=== PATIENT | male | born 1985 | race Caucasian/White ===

== ENCOUNTER 2021-03-17 04:13 | Emergency (ER) | payer SELFPAY ==
[~2021-03-17] VITALS: Ht 177.8 cm; Wt 62.4 kg
[2021-03-17] MEDS ORDERED: LORazepam 2 MG/ML, 1ML IVPush ONE (04:30)
[2021-03-17] MEDS ORDERED: SODIUM CHLORIDE 0.9% 1,000ML IVBOLUS ONE ×2 (04:30→05:30)
[2021-03-17] MEDS ORDERED: MORPHINE SULFATE 4 MG/ML, 1ML IVPush PRN (04:30)
[2021-03-17] MEDS ORDERED: SODIUM CHLORIDE FLUSH 10ML SYR IVF ONE (04:30)
[2021-03-17] MEDS ORDERED: MORPHINE SULFATE 4 MG/ML, 1ML ONE (04:33)
[2021-03-17] MEDS ORDERED: LORazepam 2 MG/ML, 1ML ONE (04:34)
[2021-03-17] MEDS ORDERED: KETOROLAC 30 MG/1 ML ONE (04:44)
[2021-03-17] MEDS ORDERED: KETOROLAC 15 MG/1ML IVPush ONE (05:00)
[2021-03-17 05:17] LABS: CHLORIDE 100 mmol/L (98-107)
[2021-03-17 05:20] LABS: BASOPHILS % (AUTO) 1 % (0-1); EOSINOPHILS % (AUTO) 2 % (1-7); LYMPHOCYTES % (AUTO) 16 % (22-44); MEAN CORPUSCULAR HEMOGLOBIN 30.9 pg (27.5-34.5); MEAN CORPUSCULAR HGB CONC 34.6 g/dL (33.2-36.2); MEAN PLATELET VOLUME 7.3 fL (7.4-10.4); MONOCYTES % (AUTO) 14 % (2-9); NEUTROPHILS % (AUTO) 68 % (42-75); PLATELET COUNT 353 x10^3/uL (130-400); RED BLOOD COUNT 4.39 x10^6/uL (4.38-5.82); RED CELL DISTRIBUTION WIDTH 12.7 % (9.4-14.8)
[2021-03-17 05:27] LABS: ALANINE AMINOTRANSFERASE 54 U/L (12-78); ALBUMIN 2.5 g/dL (3.4-5.0); ALKALINE PHOSPHATASE 96 U/L (45-117); ANION GAP 8 mmol/L (5-15); BILIRUBIN,TOTAL 0.3 mg/dL (0.2-1.0); CALCIUM 8.5 mg/dL (8.5-10.1); CREATININE 0.97 mg/dL (0.7-1.3); TOTAL PROTEIN 7.6 g/dL (6.4-8.2); TROPONIN I < 0.015 ng/mL (0.000-0.045)
[2021-03-17] MEDS ORDERED: DOXYCYCLINE 100 MG in DEXTROSE 5% 250 ML IV ONE (05:30)
--- NOTE | 2021-03-17 05:46 | NUR ---
PER ERP, NO BLOOD CULTURES PRIOR TO ABX
[2021-03-17] MEDS ORDERED: AMOXICILLIN/CLAV 875-125MG TABLET PO ONE (07:30)
--- NOTE | 2021-03-17 07:30 | NUR ---
PT RESTING CALMLY IN BED AT THIS TIME. ORDERED ABX REMAIN INFUSING. WILL CONTINUE TO MONITOR. PT HAS NO STATED NEEDS CURRENTLY
[2021-03-17] MEDS ORDERED: AMOXICILLIN/CLAV 875-125MG TABLET ONE (07:35)
[2021-03-17 08:12] VITALS: BP 114/76
== END 2021-03-17 08:14 | disposition home or self-care (01) ==
LOC: ED 06:04
DX: J15.9 Unspecified bacterial pneumonia (principal); R07.89 Other chest pain
CPT/HCPCS: 36415; 71045; 80053; 84484; 85025; 93005; 96361; 96365; 96366; 96375; 99285; J1885; J7030; J7060